=== PATIENT | male | born 1960 | race Caucasian/White ===

== ENCOUNTER 2016-04-18 08:59 | Emergency (ER) | payer SELFPAY ==
[~2016-04-18] VITALS: Ht 180.3 cm; Wt 65.0 kg
[2016-04-18 09:02] VITALS: BP 189/106; PULSE 112; RESP 16; TEMP 97.9; O2SAT 99
[2016-04-18 09:24] VITALS: BP 161/88; PULSE 98; RESP 16; O2SAT 99
--- NOTE | 2016-04-18 09:34 | PD ---
HPI Chief Complaint: Medication Refill Request Time Seen by Provider: 09:01 Travel History International Travel<30 days: No Contact w/Intl Traveler<30days: No Traveled to known affect area: No History of Present Illness HPI Patient comes in requesting a refill of his Percocet. Patient states he is on this for chronic pain. Patient reports he is [place] and ran out of his medications. Patient denies any fevers, chest pain, shortness of breath, abdominal pain, nausea, vomiting, IV drug use, numbness or tingling anywhere, recent trauma, or loss of bowel or bladder. History Past Medical Histgory Tetanus Vaccination: < 5 Years Social History Alcohol Use: Yes (OCC) Tobacco Use: Yes Allergies-Medications (Allergen,Severity, Reaction): Coded Allergies: No Known Allergies (Unverified , 04/18/16) Review of Systems Except as stated in HPI: all other systems reviewed are Neg Physical Exam Narrative GENERAL: Well-developed, well nourished, in no acute distress, and non-ill appearing. SKIN: Warm and dry. HEAD: Atraumatic. Normocephalic. EYES: Pupils equal and round. EOMI. No scleral icterus. No injection or drainage. ENT: No nasal bleeding or discharge. Mucous membranes pink and moist. NECK: Trachea midline.Supple. No nuclear rigidity. RESPIRATORY: No accessory muscle use. No respiratory distress. MUSCULOSKELETAL: No obvious deformities. No clubbing. No cyanosis. No edema. Full range of motion. NEUROLOGICAL: Awake and alert. No obvious cranial nerve deficits. Motor grossly within normal limits. Normal speech. PSYCHIATRIC: Appropriate mood and affect; insight and judgment normal. Data Data Last Documented VS Vital Signs Date Time Temp Pulse Resp B/P Pulse Ox O2 Delivery O2 Flow Rate FiO2 04/18/16 09:24 98 16 161/88 99 Room Air 04/18/16 09:02 97.9 MDM Medical Screen Exam Complete: Yes Emergency Medical Condition: No Narrative Course History and physical exam findings are not consistent with an emergent medical condition. He was given the option of receiving additional care, but has declined. Therefore the appropriate counseling recommendations were discussed with the patient and he was instructed to follow-up with his primary care physician as soon as possible for reevaluation. Patient was also informed of community resources from which he can obtain additional care. He is agreeable and verbalizes an understanding of the proposed plan. The patient states he will immediately return to the emergency department if his current complaints do not improve, new symptoms arise, or emergent condition develops. Patient ambulated out of the emergency department without difficulty. Primary Impression: Encounter for medical screening examination Disposition: [facility]-ED USE ONLY Condition: Stable Chano See Apr 18, 2016 09:34
== END 2016-04-18 09:35 | disposition left against medical advice (07) ==
LOC: NEPB 08:59
DX: Z76.0 Encounter for issue of repeat prescription (principal); G89.29 Other chronic pain
CPT/HCPCS: 99281

== ENCOUNTER 2016-05-04 08:20 | Emergency (ER) | payer MEDICAID ==
[~2016-05-04] VITALS: Ht 180.3 cm; Wt 68.0 kg
[2016-05-04 08:21] VITALS: BP 156/87; PULSE 92; RESP 20; TEMP 97.5; O2SAT 95
--- NOTE | 2016-05-04 09:09 | PD ---
HPI Chief Complaint: Injury Time Seen by Provider: 09:09 Travel History International Travel<30 days: No Contact w/Intl Traveler<30days: No Traveled to known affect area: No History of Present Illness HPI 35-year-old male presents to the emergency Department with complaint of left foot pain [place]. Denies paresthesias, loss of sensation to the affected extremity. Denies ankle pain or decreased range of motion at the ankle. He has been ambulatory on the affected extremity. Denies fever, chills, nausea, vomiting. Is up-to-date on his tetanus vaccination. Has not taken any medications or tried any treatments to alleviate symptoms. Pain is aggravated by palpation and ambulation. No known allergies. Denies significant past medical history. No other modifying factors or associated signs and symptoms. PFSH Past Medical History Hx Anticoagulant Therapy: No Cardiovascular Problems: No Chemotherapy: No Cerebrovascular Accident: No Diabetes: No Hypertension: Yes Respiratory: No Social History Alcohol Use: Yes (OCC) Tobacco Use: Yes Substance Use: No Allergies-Medications (Allergen,Severity, Reaction): Coded Allergies: No Known Allergies (Unverified , 05/04/16) Reported Meds & Prescriptions Reported Meds & Active Scripts Active Bactrim DS (Sulfamethoxazole-Trimethoprim) 800-160 Mg Tab 1 Tab PO BID 10 Days Keflex (Cephalexin) 500 Mg Cap 500 Mg PO Q6H 10 Days Review of Systems Except as stated in HPI: all other systems reviewed are Neg Physical Exam Narrative GENERAL: Well-nourished, well-developed male patient, in no acute distress; disheveled; afebrile, nontoxic-appearing SKIN: Warm and dry. Area of erythema, edema and warmth to touch to the dorsal aspect of the left foot, possibly consistent with a cellulitis. HEAD: Atraumatic. Normocephalic. EYES: Pupils equal and round. No scleral icterus. No injection or drainage. ENT: Mucosa pink and moist. Airway patent. NECK: Trachea midline. CARDIOVASCULAR: Regular rate. RESPIRATORY: No accessory muscle use. GASTROINTESTINAL: Flat. MUSCULOSKELETAL: Left foot is edematous and with some erythema noted to the dorsal aspect, maybe consistent with cellulitis; without ecchymosis; with tenderness on palpation; no obvious deformity; sensory intact. Left lower extremity is supple and non-tense with 2+ pedal pulse and sensory intact. No ankle tenderness on palpation; without erythema or edema. No obvious deformities. No clubbing. No cyanosis. No edema. NEUROLOGICAL: Awake and alert. Oriented 3. No obvious cranial nerve deficits. Motor grossly within normal limits. Normal speech. PSYCHIATRIC: Appropriate mood and affect; insight and judgment normal. Data Data Last Documented VS Vital Signs Date Time Temp Pulse Resp B/P Pulse Ox O2 Delivery O2 Flow Rate FiO2 05/04/16 09:13 Room Air 05/04/16 08:21 97.5 92 20 156/87 95 Orders Ketorolac Inj (Toradol Inj) (05/04/16 09:15) Crutches (05/04/16 09:07) Foot, Complete ([id number]) (05/04/16 09:07) Splint Or Brace Apply/Monitor (05/04/16 09:56) [facility] Medical Decision Making Medical Screen Exam Complete: Yes Emergency Medical Condition: Yes Medical Record Reviewed: Yes Differential Diagnosis Foot fracture, foot sprain, cellulitis Narrative Course 55-year-old male with left foot injury. There is an area of erythema and warmth to touch to the dorsal aspect of the left foot that may be consistent with cellulitis. She was afebrile and nontoxic-appearing. He denies fever, chills, nausea, vomiting. The left lower extremity is supple and non-tense with 2+ pupils and sensory intact. I will x-ray the foot secondary to report of injury. I will also treat with antibiotics secondary to suspected cellulitis. Toradol administered in the ER. Left foot x-ray with no acute findings. Akin bandage applied for support. Crutches Provided for support. Keflex, Bactrim, ibuprofen prescribed for home. Patient verbalizes understanding and agreement with treatment plan. Patient is medically cleared and stable for discharge. Discussed reasons to return to the emergency department. Instructed patient to follow up with primary care provider. Patient agrees with treatment plan. The patients vital signs are stable and the patient is stable for outpatient follow-up and treatment. Patient discharged home, stable and in no acute distress. Diagnosis Primary Impression: Sprain of left foot Qualified Code: S93.602A - Sprain of left foot, initial encounter Additional Impression: Cellulitis of left foot Referrals: Primary Care Physician Patient Instructions: Cellulitis (ED), Crutch Instructions (ED), Foot Sprain ( ED), General Instructions Additional Instructions: Tylenol or ibuprofen as directed and as needed for pain and inflammation Rest, ice, compress, and elevate extremity to decrease pain and inflammation Compression bandage for compression and support Avoid aggravating activity; increase activity as tolerated Follow-up with primary care provider Return to the emergency department immediately with worsening symptoms Med/Other Pt SpecificInfo: Prescription(s) given Scripts Ibuprofen 800 Mg [id number] Mg PO Q6HR PRN (PAIN) #30 TAB Ref 0 Prov:Juju Partida 05/04/16 Sulfamethoxazole-Trimethoprim (Bactrim DS)800-160 Mg Tab1 Tab PO BID 10 Days Ref 0 Prov:Juju Partida 05/04/16 Cephalexin (Keflex)500 Mg [id number] Mg PO Q6H 10 Days Ref 0 Prov:Juju Partida 05/04/16 Disposition: 01 DISCHARGE HOME Condition: Stable Juju Partida May 04, 2016 09:09
[2016-05-04] MEDS ORDERED: KETOROLAC TROMETHAMINE 60 MG/2 ML (IM) VIAL IM ONE (09:15)
[2016-05-04] MEDS ORDERED: IBUP800T23 PO (09:21)
[2016-05-04] MEDS ORDERED: BACT800T5 PO (09:21)
[2016-05-04] MEDS ORDERED: CEPH-460 PO (09:21)
--- NOTE | 2016-05-04 09:44 | RADRPT ---
EXAM DATE/TIME: 05/04/2016 09:17 [facility] COMPARISON: No previous studies available for comparison. INDICATIONS : Stepped in hole, pain in left foot. MEDICAL HISTORY : None. SURGICAL HISTORY : None. ENCOUNTER: Initial ACUITY: 2 days PAIN SCORE: 10/10 LOCATION: Left Anterior foot FINDINGS: Three view examination of the left foot demonstrates no soft tissue swelling, dislocation, or fractur e. The tarsal bones appear intact. The interphalangeal and metatarsophalangeal joints are intact. The calcaneus is intact. There is a mild calcaneal spur at the plantar aponeurosis attachment site a nd some hypertrophic change at the distal dorsal talus. Bony mineralization is normal. CONCLUSION: No acute disease. Randall Skinner MD on May 04, 2016 at 9:39 Board Certified Radiologist. This report was verified electronically.
== END 2016-05-04 10:16 | disposition home or self-care (01) ==
LOC: NEPB 08:20
DX: S93.602A Unspecified sprain of left foot, initial encounter (principal); L03.116 Cellulitis of left lower limb; I10 Essential (primary) hypertension; Z72.0 Tobacco use
CPT/HCPCS: 73630; 96372; 99283; E0113; J1885

== ENCOUNTER 2016-05-12 02:22 | Emergency (ER) | payer MEDICAID ==
[~2016-05-12] VITALS: Ht 182.9 cm; Wt 67.0 kg
[~2016-05-12 02:22] MED LIST: BACT800T5 PO; CEPH-460 PO; IBUP800T23 PO
[2016-05-12 02:26] VITALS: BP 143/87; PULSE 64; RESP 16; TEMP 97.4; O2SAT 98
[2016-05-12] MEDS ORDERED: KEPP750T PO (04:07)
[2016-05-12] MEDS ORDERED: DICL75TA PO (04:10)
--- NOTE | 2016-05-12 04:10 | PD ---
HPI Chief Complaint: Pain: Acute or Chronic Time Seen by Provider: 04:07 Travel History International Travel<30 days: No Contact w/Intl Traveler<30days: No Traveled to known affect area: No History of Present Illness HPI 55-year-old white male presents to emergency Department with complaints of joint pain. He states that he has had multiple orthopedic injuries. He states he is requesting something for discomfort. He has had no acute injury. He denies any fever chills. No vomiting. Pain is [id number]. PFSH Past Medical History Narrative Medical Chronic pain Hx Anticoagulant Therapy: No Cardiovascular Problems: No Chemotherapy: No Cerebrovascular Accident: No Diabetes: No Hypertension: Yes Respiratory: No Past Surgical History Narrative Surgical Carpal tunnel release, multiple orthopedic surgeries. Social History Alcohol Use: Yes (occassional) Tobacco Use: Yes (occasional) Substance Use: No Allergies-Medications (Allergen,Severity, Reaction): Coded Allergies: No Known Allergies (Unverified , 05/12/16) Reported Meds & Prescriptions Reported Meds & Active Scripts Active Bactrim DS (Sulfamethoxazole-Trimethoprim) 800-160 Mg Tab 1 Tab PO BID 10 Days Keflex (Cephalexin) 500 Mg Cap 500 Mg PO Q6H 10 Days Review of Systems Except as stated in HPI: all other systems reviewed are Neg Musculoskeletal: Positive: Myalgias, Arthralgias, Pain Physical Exam Narrative GENERAL: This is a well-nourished, well-developed patient, in no apparent distress. SKIN: No rashes, ecchymoses or lesions. Warm and dry. HEAD: Atraumatic. Normocephalic. EYES: PERRL, EOMI, no discharge or injection. No scleral icterus. EARS: Clear NOSE: Nasal turbinates appear normal. THROAT: Mucosa pink and moist. Airway patent. NECK: Trachea midline. supple, moves head freely. LUNGS: Clear to auscultation. CV: Regular in rhythm. ABDOMEN: Soft nontender. EXT: No clubbing cyanosis or edema. Data Data Last Documented VS Vital Signs Date Time Temp Pulse Resp B/P Pulse Ox O2 Delivery O2 Flow Rate FiO2 05/12/16 02:26 97.4 64 16 143/87 98 Room Air MDM Medical Decision Making Medical Screen Exam Complete: Yes Emergency Medical Condition: Yes Medical Record Reviewed: Yes Differential Diagnosis MDM: High Differential diagnoses: Fracture, sprain, strain, dislocation, contusion, neurovascular injury Narrative Course Patient's given Naprosyn 500 mg by mouth. This is arthralgias Diagnosis Primary Impression: Arthralgia Qualified Code: M25.50 - Arthralgia, unspecified joint Patient Instructions: General Instructions Additional Instructions: Rest. Ice for the next 3 days followed by heat . Voltaren. Follow-up with a primary care doctor in one week. Return to the ER for emergencies. Med/Other Pt SpecificInfo: Prescription(s) given Disposition: 01 DISCHARGE HOME Condition: Stable Shree Marin May 12, 2016 04:10
[2016-05-12] MEDS ORDERED: NAPROXEN 500 MG TAB PO ONE (04:15)
== END 2016-05-12 06:38 | disposition home or self-care (01) ==
LOC: NEPB 02:22
DX: M25.50 Pain in unspecified joint (principal)
CPT/HCPCS: 99283